=== PATIENT | female | born 1970 | race Caucasian/White ===

== ENCOUNTER → 2016-08-25 | Outpatient (CLI) | payer OTHER ==
[~2016-08-25] VITALS: Ht 157.5 cm; Wt 92.5 kg
[~2016-08-25] MED LIST: LISINOPRIL20 MG PO; PROAIR HFA8.5 GM IH; PULMICORT FLE180 MCG IH; ZOCOR40 MG PO
[2016-08-25 07:17] LABS: HEMATOCRIT 38.3 % (36.0-46.0); MCV 85.3 FL (83-99)
== END | disposition home or self-care (01) ==
LOC: AMB 06:33
PROVIDERS: Internal Medicine
PROC: 0DBE8ZZ Excision of Large Intestine, Via Natural or Artificial Opening Endoscopic (ICD-10-PCS; principal; 2016-08-25)
DX: K64.9 Unspecified hemorrhoids (principal); D12.3 Benign neoplasm of transverse colon; I10 Essential (primary) hypertension; K21.9 Gastro-esophageal reflux disease without esophagitis; J45.909 Unspecified asthma, uncomplicated; Z87.891 Personal history of nicotine dependence
CPT/HCPCS: 85014; 85018; 88305; 93005; B4087; J2250; J3010